=== PATIENT | female | born 1965 | race Caucasian/White ===

== ENCOUNTER → 2019-11-25 09:38 | Outpatient (BNVA) | payer SELFPAY | PROVIDERS: Family Provider Family Medicine; Visit Provider Obstetrics & Gynecology | DX: Z12.4 Encounter for screening for malignant neoplasm of cervix (principal); N81.10 Cystocele, unspecified; N81.6 Rectocele; R10.2 Pelvic and perineal pain | CPT/HCPCS: 88175 ==

== ENCOUNTER 2020-02-20 11:53 | Outpatient (CLI) | payer SELFPAY ==
--- NOTE | 2020-02-20 12:00 | MM_ITS ---
WS: [id number] BILATERAL DIGITAL SCREENING MAMMOGRAPHY WITH CAD CLINICAL INFORMATION: Breast cancer screening HISTORY: Screening mammogram. No current complaints. COMPARISON: January 30, 2018 TECHNIQUE: Bilateral CC and MLO views. FINDINGS: The breasts are composed of heterogeneous fibroglandular density tissue, which can limit the detectio n of small underlying mass lesions. No suspicious mass, asymmetry, calcifications, or architectural d istortion. No evidence of malignancy. MM/[place] [id number] IMPRESSION: BI-RADS: 1-Negative FOLLOW UP: 1 Year Follow-up Recommend return to annual screening mammography.
== END 2020-02-20 11:54 | disposition home or self-care (01) ==
PROVIDERS: PCP Family Medicine; Visit Provider Obstetrics & Gynecology
DX: Z12.31 Encounter for screening mammogram for malignant neoplasm of breast (principal)
CPT/HCPCS: 77067

== ENCOUNTER 2020-09-28 09:44 | Outpatient (CLI) | payer SELFPAY ==
[2020-09-28 10:25] VITALS: BMI 43.9
--- NOTE | 2020-09-28 10:28 | ECG_ITS ---
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 Interpretive Statements NAME OF STUDY: EXERCISE SESTAMIBI STRESS TEST INDICATION: Abnormal ekg, PROCEDURE: The baseline electrocardiogram showed normal sinus rhythm with a poor R wave progression. Diffuse nonspecific T wave changes. At the baseline, the patient's blood pressure was mm Hg with a heart rate of. The patient exercised for 5 minutes and 59 seconds on a standard Harish protocol. Patient attained a maximum heart rate of 159 beats per minute(97% of the maximum predicted heart rate) with a blood pressure at the peak exercise of 213/103 mm Hg. The EKG at the peak exercise revealed no significant changes. Patient did not have any chest pain or any significant arrhythmis with the exercise Sestamibi was injected 1 minute prior to the peak exercise During the recovery phase, there were no new changes. Blood pressure at the end of the recovery phase was 118/90 mm Hg with a heart rate of 96 per minute. CONCLUSION: 1. No significant EKG changes with the [treadmill exercise 2. No exercise-induced chest pain or cardiac arrhythmia 3. Slightly impaired impaired exercise tolerance, attained a maximum of 7.0 METs 4. Sestamibi/Sestamibi perfusion results pending; see separate report. Electronically Signed On 09-28-2020 15:43:40 SWIMMING POOL ATTENDANT by Kushal Gaines M.D. [id number]
--- NOTE | 2020-09-28 10:29 | NMCV_ITS ---
NM johnathan perf SPECT r/s* [id number] Lis Friedman Age: 55 Gender: F : 1965 Exam Date: 09/28/2020 11:39 Ordering Phys: Kushal Gaines MD ([email or web address]) Technologist: LILY Del Castillo Exam Location: [facility] Indications: OTHER CHEST PAIN STRESS TEST Please see separate stress test report in [facility] for full findings IMAGE PROTOCOL Rest/Stress 1 Exercise Day Radiopharmaceutical Dose (mCi) Administration Site Administered by Rest: Tc-99m 11.0 IV LILY Del Castillo Sestamibi Stress:Tc-99m 33.0 IV LILY Del Castillo Sestamibi Rest: 28-Sep-2020 60 Discovery 630 Stress: 28-Sep-2020 15 Discovery 630 Radiopharmaceutical was injected at 92 % maximum heart rate. Images obtained in supine and prone position. SPECT RESULTS Technical Quality: Good Raw Data Analysis: Breast attenuation Image Corrections: No attenuation or motion correction applied Summed Stress Score: 1 Summed Rest Score: 2 Summed Difference Score: 1 PERFUSION FINDINGS Slightly decreased tracer uptake was noted in the apical region with the supine imaging. Some reversibility was noted with the supine imaging. No significant reversibility with the prone imaging. FUNCTIONAL RESULTS (calculated via Gated SPECT) Stress Image LV EF (%): 86 Stress EDV (mL):56 TID: 0.75 Stress ESV (mL):8 FUNCTIONAL FINDINGS: Segmental wall motion analysis revealed no gross wall motion normalities. IMPRESSIONS 1. Myocardial perfusion imaging revealing a very small area of inconsistent reversible defect in the LV apex, most likely artifactual. 2. Normal LV ejection fraction of 86%. 3. LV wall motion analysis revealing no gross wall motion normalities. 4. Normal LV volume. No significant coronary ischemia, based on the above findings Dr Kushal Gaines MD [facility] (Electronically Signed) Final Date: 28 September 2020 17:09 S
[2020-09-28 12:59] VITALS: BP 118/90; PULSE 96
--- NOTE | 2020-09-28 14:15 | USCV_ITS ---
Lis Friedman Age: 55 Gender: F : 1965 Exam Date: 09/28/2020 10:51 Ordering Phys: Kushal Gaines MD ([email or web address]) Technologist: Laura Hager Exam Location: [facility] [place] Indication: CP BP: 138 / 79 HR: 70 Rhythm: Sinus Technical Quality: Adequate MEASUREMENTS (Male / Female) Normal Values 2D ECHO LV Diastolic Diameter PLAX 3.8 cm 4.2 - 5.9 / 3.9 - 5.3 cm LV Systolic Diameter PLAX 2.4 cm LV Chamber Size 4.3 cm IVS Diastolic Thickness 0.6 cm 0.6 - 1.0 / 0.6 - 0.9 cm IVS Systolic Thickness 2.0 cm LVPW Diastolic Thickness 0.6 cm 0.6 - 1.0 / 0.6 - 0.9 cm LVPW Systolic Thickness 1.7 cm RV Chamber Size 2.3 cm LVOT Diameter 2.0 cm LV Ejection Fraction 2D Teich 68.0 % LV Ejection Fraction MOD 2C 28.5 % LV Ejection Fraction 2C AL 28.0 % LA Diameter 3.4 cm LA Width 3.9 cm LA Height 5.3 cm RA Width 2.6 cm RA Height 3.9 cm Aorta at Sinotubular Diameter 2.7 cm M-MODE LV Diastolic Diameter MM 5.9 cm 4.2 - 5.9 / 3.9 - 5.3 cm LV Systolic Diameter MM 3.9 cm LV Ejection Fraction MM Teich 62.8 % IVS Diastolic Thickness MM 0.7 cm 0.6 - 1.0 / 0.6 - 0.9 cm IVS Systolic Thickness MM 1.3 cm LVPW Diastolic Thickness MM 0.7 cm 0.6 - 1.0 / 0.6 - 0.9 cm LVPW Systolic Thickness MM 1.3 cm RV Diastolic Diameter MM 0.8 cm Aortic Annulus Diameter 2.9 cm LA Ao Ratio MM 1.2 MV E Point Septal Separation 0.5 cm DOPPLER AV Peak Velocity 114.0 cm/s LVOT Peak Velocity 92.0 cm/s AV Area Cont Eq vti 2.1 cm squared AV Area Cont Eq pk 2.4 cm squared MV Area PHT 3.9 cm squared Mitral E to A Ratio 1.1 MV E' Velocity 54.0 cm/s Mitral E to MV E' Ratio 8.8 Mitral E to LV E' Lateral Ratio 8.6 Mitral E to LV E' Septal Ratio 9.1 TR Peak Velocity 207.9 cm/s TR Peak Gradient 17.3 mmHg TR Mean Velocity 126.1 cm/s TR Mean Gradient 7.6 mmHg TR Velocity Time Integral 34.1 cm TV Peak E Velocity 65.0 cm/s Right Atrial Pressure 3.0 mmHg Pulmonary Artery Systolic Pressu 20.3 mmHg FINDINGS Left Ventricle Normal left ventricular size and systolic function, EF 55 %. No gross wall motion abnormalities noted Right Ventricle Normal right ventricular size and systolic function. Right Atrium The right atrium is normal in size. Left Atrium Mildly increased left atrial size. Mitral Valve Grade 1 bileaflet mitral valve prolapse with trace of regurgitation Aortic Valve No gross abnormalities noted Tricuspid Valve Trace to mild tricuspid valve regurgitation. Pulmonic Valve Pulmonic valve not well visualized. Pericardium No pericardial effusion. Aorta Normal aortic annulus size. CONCLUSIONS Normal left ventricular size and systolic function, EF 55 %. No gross wall motion abnormalities noted. Mildly increased left atrial size. Grade 1 bileaflet mitral valve prolapse with trace of regurgitation. Trace to mild tricuspid valve regurgitation. There is no pericardial effusion. There are no intracardiac masses. There are no prior echocardiogram studies to compare. Dr Kushal Gaines MD FAC (Electronically Signed) Final Date: 29 September 2020 02:38 S
== END 2020-09-28 09:45 | disposition home or self-care (01) ==
LOC: CDL 09:50
PROVIDERS: PCP Family Medicine; Visit Provider Internal Medicine Cardiovascular Disease
DX: R06.02 Shortness of breath (principal); R94.31 Abnormal electrocardiogram [ECG] [EKG]; I34.1 Nonrheumatic mitral (valve) prolapse; I07.1 Rheumatic tricuspid insufficiency
CPT/HCPCS: 78452; 93017; 93306; A9500

== ENCOUNTER → 2021-04-09 08:11 | Outpatient (BNVA) | payer OTHER, SELFPAY | PROVIDERS: PCP Family Medicine; Visit Provider Surgery | DX: Z01.812 Encounter for preprocedural laboratory examination (principal); Z20.822 Contact with and (suspected) exposure to COVID-19 | CPT/HCPCS: 87635 ==

== ENCOUNTER 2021-04-15 05:57 | Day surgery (SDC) | payer SELFPAY ==
[2021-04-14 16:12] VITALS: BMI 43.9
[2021-04-15] VITALS (10 sets, daily range): BP systolic 98–136; BP diastolic 57–93; PULSE 74–88; RESP 16–20; TEMP 36.3–37; O2SAT 90–99
[2021-04-15] MEDS: sodium chloride 0.9% 1,000 ML 30 ML IV (06:23)
--- NOTE | 2021-04-15 06:27 | W.PM.OPSUD ---
Surgery/Procedure H&P Update DATE OF PROCEDURE: April 15, 2021 DATE H&P PERFORMED: 03/30/21 H&P UPDATE INFORMATION: No changes to prior documentation PLANNED PROCEDURE: Operation Date: 04/15/21 07:00 Proposed Procedures p Ventral Hernia Repair (Open) w/ [id number] [id number](Not Applicable) - Bharat Gottlieb MD
[2021-04-15] MEDS: ceFAZolin 3,000 MG in sodium chloride 0.9% (100 ml) 100 ML 200 MG IV (06:56)
--- NOTE | 2021-04-15 07:03 | ANES.PREANE2 ---
Pre-Anesthetic Assessment Pre-Anesthetic Assessment: Height/Weight: Height 1.57 m Weight 108.862 kg Temp Pulse Resp BP Pulse Ox 97.3 F L 79 16 109/86 99 04/15/21 06:06 04/15/21 06:06 04/15/21 06:06 04/15/21 06:06 04/15/21 06:06 Proposed Procedure: Operation Date: 04/15/21 07:00 Proposed Procedures p Ventral Hernia Repair (Open) w/ [id number] [id number](Not Applicable) - Bharat Gottlieb MD Was Beta Gutierrez taken within 24 hours: N/A Was Clonidine taken within 24 hours: N/A Last intake: Intake Last Liquid Date 04/14/21 Last Liquid Time 23:00 Last Solid Date 04/14/21 Last Solid Time 20:30 Social: Social History: No alcohol and No tobacco Exam: Pre-Anes Outpt Exam: alert, oriented x 3, clear to auscultation bilaterally and regular rate & rhythm Airway: Submandibular: WNL Cervical ROM: WNL MP: 2 Dentition: Partials Pulmonary: Pulmonary: Asthma CV/HEM: CV/HEM: HTN GI: GI: GERD Metabolic: Metabolic: Morbid obesity and Thyroid Anesthetic Plan: ASA status: 3 Anesthesia: General Risk of > 500 ml blood loss (7ml/kg in children): No Meds/Allergies Current Medications: Current Medications Generic Name Dose Route Start Last Admin Trade Name Freq PRN Reason Stop Dose Admin Sodium Chloride 1,000 mls @ 30 ml s/hr 04/15/21 06:00 04/15/21 06:23 Sodium Chloride 0.9% IV 04/16/21 05:59 30 mls/hr .Q24H NIYAH Administration PFSH Anesthesia PFSH: Medical History Abnormal EKG Asthma Atrial arrhythmia Benign essential HTN Dyslipidemia Hypertension Reactive airway disease SOB (shortness of breath) Surgical History S/P cataract extraction 2013- Performed in [place], [place] S/P endometrial ablation 2016 S/P eye surgery 1989- Performed in [place], [place], bilateral S/P knee replacement left knee 04/2018 right knee 07/2018 S/P sinus surgery 2012-Performed in [place], [place] 2015-Performed in [place] Family History Father CAD (coronary artery disease) CHF Mother CAD (coronary artery disease) CHF 78 Social History Smoking and tobacco status: never smoked Alcohol intake: never Data Anesthesia Cardiac Studies: Holter Monitor 08/24/20
--- NOTE | 2021-04-15 07:47 | PM.OP ---
Operative Report Date of procedure: April 15, 2021 Pre-op Diagnosis: Recurrent ventral hernia. Post-op diagnosis: same Procedure Done: Repair of recurrent ventral hernia with Ventrio mesh. Pathology: none sent Surgeon: Bharat Gottlieb Anesthesia: General Estimated blood loss (mL): 10 Complications: None. Condition: stable Disposition: PACU Procedure: The patient was brought to the operating room and was placed in a supine position on the operating room table. General endotracheal anesthesia was induced. The abdomen was prepped and draped in a sterile fashion. A combination of 1% lidocaine with 1 to 100,000 parts epinephrine and 0.5% bupivacaine was used for local anesthesia throughout the procedure. A vertical incision was carried out over the hernia in the low epigastrium. Cautery was used to divide the subcutaneous tissue and the hernia sac was identified. This is grasped with a hemostat and was cleared all the way down to the fascia where the sac was eventually opened and excised, revealing a hernia defect measuring perhaps 6 cm in greatest diameter. The fascia could be brought back together without much tension, however the wound was irrigated with saline.. A 4.5 inch round piece of Ventrio mesh was introduced into the abdominal cavity and was brought up against the abdominal wall using multiple through and through sutures of #1 Prolene. The fascial edges were then sewn to the mesh and to each other on top of the mesh using multiple interrupted sutures of 0 Prolene. This did a very good job of obliterating the defect with the mesh underneath the repair. The wound was extensively irrigated with saline. The dermis was brought together using multiple inverted interrupted sutures of 0 Vicryl. The skin was reapproximated using a running subcuticular suture of 3-0 Vicryl. Benzoin and Steri-Strips were placed over the incision and a sterile bandage followed. The patient was taken to the recovery area in stable condition postoperatively.
[2021-04-15] MEDS: ondansetron 2 mg/ML SDV 2 mL 4 MG IVP ×2 (07:58→08:12)
[2021-04-15] MEDS: fentaNYL 50 mcg/mL INJ 2mL IVP (08:05)
--- NOTE | 2021-04-15 08:15 | SUR.PHASEI ---
0753 PT TO PACU AWAKE ALERT GOOD RESP NOTED ABD SOFT MIDLINE DRESSING D/I 0758 PT C/O OF NAUSEA, SEE MED GIVEN 0805 PT GRIMICING C/O OF PAIN OF 10 AFTER COUGHING SEE MED GIVEN PT HOLDING ABD FOR SUPPORT WITH COUGHING 0815 PT STILL STATES NAUSEA IS UNCHANGED SEE MED REPEATED VSS.
--- NOTE | 2021-04-15 08:18 | SUR.PHASEI ---
PT CHANGED TO NC EARLIER PT CAN NOT TOLERATE THE MASK, PT SLEEPS OFF AND ON WITH ABOVE PAIN MEDS HAVING BEEN GIVEN SATS MAINTAINED AT 93-94% ON 3LNC .
[2021-04-15] MEDS: diphenhydrAMINE 50 mg/mL SDV 1mL 12.5 MG IVP (09:11)
[2021-04-15] MEDS: HYDROcodone-acetaminophen 5-325 mg Tablet 1 TAB PO (09:15)
--- NOTE | 2021-04-15 16:36 | ANE.PACU2 ---
Inpatient post-anesthesia follow up: Airway intact: Yes Vital signs: Temperature 98.6 F Pulse Rate 78 Respiratory Rate 16 Blood Pressure 122/82 Pulse Oximetry 94 Oxygen Delivery Me thod Room Air Oxygen Flow Rate 3 Fraction of Inspir ed Oxygen Hydration adequate: Yes Nausea and vomiting: No Pain level: 2 Mental status: Baseline
== END 2021-04-15 09:50 | disposition home or self-care (01) ==
PROVIDERS: PCP Family Medicine; Visit Provider Surgery
PROC: 0WQF0ZZ Repair Abdominal Wall, Open Approach (ICD-10-PCS; CPT 49565; principal; 2021-04-15 07:00)
DX: K43.2 Incisional hernia without obstruction or gangrene (principal); I10 Essential (primary) hypertension; K21.9 Gastro-esophageal reflux disease without esophagitis; E66.01 Morbid (severe) obesity due to excess calories; Z68.41 Body mass index [BMI] 40.0-44.9, adult; E78.5 Hyperlipidemia, unspecified; Z82.49 Family history of ischemic heart disease and other diseases of the circulatory system
CPT/HCPCS: 49565; 49568; 96365; J0690; J1200; J2405; J2704; J2710; J3010; J3490; J3535; J7030

== ENCOUNTER 2021-11-22 08:52 | Outpatient (CLI) | payer SELFPAY ==
--- NOTE | 2021-11-22 09:07 | MM_ITS ---
WS: [id number] BILATERAL SCREENING DIGITAL MAMMOGRAM WITH CAD HISTORY: SCREENING COMPARISON: 02/20/2020, 02/22/2018, 01/30/2018 and 04/07/2014 Bilateral CC and MLO views submitted. Computer aided detection analyzed. Breast composition: There are scattered areas of fibroglandular density. No suspicious masses, microc alcifications or architectural distortion. Asymmetries and calcifications are stable. MM/[place] [id number] IMPRESSION: BI-RADS: 2-Benign FOLLOW UP: 1 Year Follow-up
== END 2021-11-22 08:53 | disposition home or self-care (01) ==
LOC: RADSHAW 09:01
PROVIDERS: PCP Family Medicine; Visit Provider Pharmacist
DX: Z12.31 Encounter for screening mammogram for malignant neoplasm of breast (principal)
CPT/HCPCS: 77067

== ENCOUNTER 2023-01-27 07:33 | Outpatient (CLI) | payer SELFPAY ==
--- NOTE | 2023-01-27 08:09 | MM_ITS ---
WS: [id number] VIEWS: MLO and CC views both breasts. 3D digital tomosynthesis is also included in this exam. Comparison made with prior exam of 01/10/2008, 04/07/2014, 01/30/2018, 02/20/2020, 11/22/2021.. Findings: There was no sign of mass, architectural distortion or suspicious calcification in either breast. Sc attered fibroglandular densities MM/[place] [id number] Impression: BI-RADS: 2-Benign FOLLOW-UP: 1 Year Follow-up This mammogram was also analyzed by the Computer Aided Detection System R2 Imag e Architectural Practice Manager.
== END 2023-01-27 07:34 | disposition home or self-care (01) ==
LOC: RAD 07:38
PROVIDERS: PCP Electrodiagnostic Medicine; Visit Provider Electrodiagnostic Medicine
DX: Z12.31 Encounter for screening mammogram for malignant neoplasm of breast (principal)
CPT/HCPCS: 77063; 77067

== ENCOUNTER 2023-08-31 11:10 | Emergency (ER) | payer SELFPAY ==
[2023-08-31 11:31] VITALS: BP 135/94; PULSE 87; RESP 16; TEMP 36.6; O2SAT 99
[2023-08-31 11:52] VITALS: BP 136/94; PULSE 84; RESP 18; O2SAT 98
--- NOTE | 2023-08-31 11:58 | W.ED.DIZZY ---
HPI - Dizziness General: Chief Complaint: Dizziness Stated Complaint: high blood sugar Time Seen by Provider: 08/31/23 11:51 Source: patient Mode of arrival: ambulatory History of Present Illness: HPI Narrative: 58-year-old female reports to the emergency room complaining of dizziness lightheadedness generally not feeling well. She has been told before she has impaired glucose tolerance she is not on any medications. She ate a doughnut along with coffee with sugar and cream began not feeling well checked her blood sugar was over 500 she has noticed increased urination and blurred vision that she denies any chest pain. No history of coronary disease. Few weeks ago she had an episode of COVID and was briefly on a steroid burst and taper she has completed that now. MD elicited complaint: dizziness Exacerbating factors: nothing Relieving factors: nothing Associated symptoms: Denies abnormal vaginal bleeding, change in hearing, chest pain, chills, cough, diaphoresis, ear discharge, ear pressure, fevers/chills, headache(s), malaise, nausea, nasal congestion, palpitations, rash, short of breath, syncope, tinnitus, vomiting or weakness Associated neuro symptoms: Deny confusion, difficulty speaking, dysphagia, diplopia, extremity weakness, facial numbness, facial weakness, gait changes, numbness in extremities or visual changes Review of Systems Const: Denies: fever(s), chills, malaise or diaphoresis ENMT: Denies: ear discharge, change in hearing, tinnitus or nasal congestion Card: Denies: chest pain, palpitations or syncope Resp: Denies: dyspnea GI: Denies: abdominal pain, nausea, vomiting or dysphagia : Denies: dysuria, urinary frequency or urinary urgency Musc: Denies: neck pain or back pain Skin/Breast: Denies: rash Neuro: Denies: headache(s), numbness in extremities or confusion PFS ED PFSH: Medical History Abnormal EKG SOB (shortness of breath) Reactive airway disease Atrial arrhythmia Dyslipidemia Benign essential HTN Asthma Hypertension Surgical History S/P eye surgery 1989- Performed in [facility], [facility], bilateral S/P cataract extraction 2013- Performed in [place], [place] S/P sinus surgery 2012-Performed [place] 2015-Performed in [place] S/P knee replacement left knee 04/2018 right knee 07/2018 S/P endometrial ablation 2016 Family History Father CAD (coronary artery disease) CHF Mother CAD (coronary artery disease) CHF 78 Social History Smoking and tobacco/nicotine status: never used tobacco/nicotine Alcohol intake: never Substance/Drug Use: never Physical Exam Const: GENERAL APPEARANCE: cooperative and comfortable ORIENTATION/CONSCIOUSNESS: Yes awake, Yes oriented to person, Yes oriented to place and Yes oriented to time HENMT: COMMON NORMALS: normocephalic, atraumatic and hearing grossly normal bilaterally HEAD & SCALP: normocephalic and atraumatic Resp: COMMON NORMALS: normal respiratory effort, No retractions, No use of accessory muscles and clear to auscultation bilaterally AUSCULTATION: clear to auscultation bilaterally Cardio: COMMON NORMALS: regular rate, regular rhythm and No murmurs present (Cardio) RATE: regular rate RHYTHM: regular rhythm GI: COMMON NORMALS: Soft to palpation and No hepatosplenomegaly present AUSCULTATION: Yes normoactive bowel sounds PALPATION: Yes Soft to palpation, No Tenderness to palpation present (GI), No Guarding due to palpation present (GI) and Yes No hepatosplenomegaly present Extremity: COMMON NORMALS: normal to inspection, capillary refill normal, no clubbing, cyanosis or edema, no calf tenderness and no pedal edema Neuro: SENSORIUM/ORIENTATION: Yes oriented to person, Yes oriented to place and Yes oriented to time Skin: COMMON NORMALS: no rashes or lesions noted GENERAL SKIN EXAM: no rashes or lesions noted Course Vital Signs: Vital signs: Vital Signs Temperature 97.8 F 08/31/23 11:31 Pulse Rate 85 08/31/23 12:15 Respiratory Rate 18 08/31/23 12:15 Blood Pressure 119/84 08/31/23 12:15 Pulse Oximetry 95 08/31/23 12:15 Oxygen Delivery Me thod Room Air 08/31/23 12:15 MDM - Dizziness Medical Decision Making Patient's blood sugars improved Jumbo 300 this point think we could discharge her home we will start her on Janumet 50/501 p.o. twice daily. Encourage patient follow-up with her primary care doctor within the next week to reevaluate blood sugars. Likely will need further medication adjustments or additional medications. Medical Records I reviewed the patient's medical records. Lab Data I reviewed the patient's lab results. 08/31/23 12:00 08/31/23 12:00 Laboratory Results WBC 5.17 10^3/uL (3.29-11.43) 08/31/23 12:00 RBC 4.61 10^6/uL (3.85-5.65) 08/31/23 12:00 Hgb 15.10 g/dL (11.27-16.99) 08/31/23 12:00 Hct 42.6 % (36-47) 08/31/23 12:00 MCV 92.4 fl (85-98) 08/31/23 12:00 MCH 32.8 pg (27-33) 08/31/23 12:00 MCHC 35.4 g/dL (30-55) 08/31/23 12:00 RDW 11.2 % (12.1-15.1) L 08/31/23 12:00 Plt Count 208 10^3/cmm (157-399) 08/31/23 12:00 MPV 10.8 fL (7.4-10.4) H 08/31/23 12:00 Neut % (Auto) 48.7 % 08/31/23 12:00 Lymph % (Auto) 41.2 % 08/31/23 12:00 Osborne % (Auto) 8.1 % 08/31/23 12:00 Eos % (Auto) 1.2 % 08/31/23 12:00 Baso % (Auto) 0.6 % 08/31/23 12:00 Neut # (Auto) 2.52 10^3/uL (1.8-7.7) 08/31/23 12:00 Lymph # (Auto) 2.1 10^3/uL (0.8-4.8) 08/31/23 12:00 Osborne # (Auto) 0.4 10^3/uL (0.2-0.9) 08/31/23 12:00 Eos # (Auto) 0.1 10^3/uL (0.0-0.8) 08/31/23 12:00 Baso # (Auto) 0.0 10^3/uL (0.0-0.1) 08/31/23 12:00 Nucleated RBC % (auto) 0 % 08/31/23 12:00 Nucleated RBCs # 0.0 /100WBC 08/31/23 12:00 Sodium 130 mmol/L (136-145) L 08/31/23 12:00 Potassium 4.1 mmol/L (3.5-5.1) 08/31/23 12:00 Chloride 93 mmol/L (98-107) L 08/31/23 12:00 Carbon Dioxide 23 mmol/L (22-29) 08/31/23 12:00 Anion Gap 18.1 (5-19) 08/31/23 12:00 BUN 15 mg/dL (8-23) 08/31/23 12:00 Creatinine 0.7 mg/dL (0.5-0.9) 08/31/23 12:00 GFR Calculation 85.4 mL/min (90-130) L 08/31/23 12:00 Glucose 507 mg/dL (65-115) H* 08/31/23 12:00 POC Glucose 421 mg/dL (70-110) H 08/31/23 12:43 Calculated Osmolality 294 mOsm/kg (285-295) 08/31/23 12:00 Calcium 9.3 mg/dL (8.5-10.5) 08/31/23 12:00 Total Bilirubin 0.7 mg/dL (0.15-1.2) 08/31/23 12:00 AST 41 U/L (0-32) H 08/31/23 12:00 ALT 42 U/L (0-33) H 08/31/23 12:00 Alkaline Phosphatase 101 U/L (35-105) 08/31/23 12:00 Total Protein 7.7 g/dL (6.6-8.7) 08/31/23 12:00 Albumin 4.3 g/dL (3.5-5.2) 08/31/23 12:00 Globulin 3.4 g/dL (1.3-4.6) 08/31/23 12:00 Urine Color Yellow (Yellow) 08/31/23 12:00 Urine Appearance Clear (CLEAR) 08/31/23 12:00 Urine pH 6 (5-7) 08/31/23 12:00 Ur Specific [place] 1.010 (1.005-1.030) 08/31/23 12:00 Urine Protein Neg (Negative) 08/31/23 12:00 Urine Glucose (UA) 4+ (Normal) H 08/31/23 12:00 Urine Ketones 1+ (Negative) H 08/31/23 12:00 Urine Blood Neg (Negative) 08/31/23 12:00 Urine Nitrate Negative (Negative) 08/31/23 12:00 Urine Bilirubin Neg (Negative) 08/31/23 12:00 Urine Urobilinogen Norm mg/dL (Negative) 08/31/23 12:00 Ur Leukocyte Esterase Negative (Negative) 08/31/23 12:00 No radiology studies performed this visit Discharge Plan Discharge Patient Disposition: Home Clinical Impression: Diabetes mellitus, Hyperglycemia Condition: Stable Prescriptions: New Janumet 50-500 mg tablet 1 tab PO BID Qty: 60 0RF No Action albuterol sulfate 2.5 mg /3 mL (0.083 %) solution for nebulization 2.5 mg INHALATION Q6H PRN (Reason: Shortness Of Breath Or Wheezing) albuterol sulfate [Ventolin HFA] 90 mcg/actuation HFA aerosol inhaler 2 puff INHALATION QID PRN (Reason: Shortness Of Breath) Zyrtec 10 mg capsule 10 mg PO DAILY montelukast [Singulair] 10 mg tablet 10 mg PO DAILY ferrous sulfate 325 mg (65 mg iron) tablet,delayed release (DR/EC) 325 mg PO DAILY omeprazole 20 mg tablet,delayed release (DR/EC) 20 mg PO DAILY magnesium See Rx Instructions .ROUTE .COMPLEX Rx Instructions: . levothyroxine 100 mcg capsule 100 mcg PO DAILY lisinopril-hydrochlorothiazide 10-12.5 mg tablet 1 tab PO DAILY Lactobacillus acidophilus See Rx Instructions .ROUTE .COMPLEX Rx Instructions: . potassium 275 mg capsule See Rx Instructions .ROUTE .COMPLEX Rx Instructions: takes 2 daily biotin 10,000 mcg tablet,disintegrating 10,000 mcg PO DAILY calcium polycarbophil [Fiber Therapy (ca polycarboph)] 625 mg tablet 1,250 mg PO DAILY hydrocodone-acetaminophen 5-325 mg tablet 1 - 2 tab PO Q5H PRN (Reason: pain) Qty: 30 0RF Discharge Orders: Discharge ED (Routine); Ordered 08/31/23 Ordered By: Nir Cadena Referrals: Dave Rodriguez, [Primary Care Provider] - Discharge Diet: Diabetic Discharge Activity: Increase activity as tolerated Patient Instructions: Meal Planning with Diabetes Exchanges (DC), Opioid Safety, Pain Management Activity Restrictions/Additional Instructions: Thank you for choosing [facility] for your healthcare needs today. Please realize this is an emergency room and that we are providing you with a medical screening exam and this may not be complete and all inclusive of all the testing and or work up that you may need to determine your ailment or severity of your illness. It is very important that you follow up as instructed or that you return to the Emergency Department should you have concerns or if your condition changes or worsens in any way. You are seen today for elevated blood sugars it did improve with administration of fluids and insulin. Recommend that you start Janumet 1 tablet twice daily. This will likely not be enough to fully control your blood sugars but will get you started. You should follow-up with your doctor within the next 1 to 2 weeks to reevaluate and adjust medicines as deemed necessary. Coding Level of Care Code ED Bakery Supervisor for Hollis Gunderson
[2023-08-31] MEDS: insulin regular-human 100 units/1 mL 5 UNIT IVP (12:13)
[2023-08-31] MEDS: sodium chloride 0.9% 1,000 ML 999 ML IV (12:14)
[2023-08-31 12:15] VITALS: BP 119/84; PULSE 85; RESP 18; O2SAT 95
[2023-08-31 12:19] LABS: Add Urine Microscopic? NO; Charge for UA Resulting for Rev
[2023-08-31 12:23] LABS: Basophils % 0.6 %; Eosinophils # 0.1 10^3/uL (0.0-0.8); Eosinophils % 1.2 %; Hematocrit 42.6 % (36-47); Lymphocytes # 2.1 10^3/uL (0.8-4.8); Lymphocytes % 41.2 %; Mean Corpuscular HGB Conc 35.4 g/dL (30-55); Mean Corpuscular Hemoglobin 32.8 pg (27-33); Mean Corpuscular Volume 92.4 fl (85-98); Mean Platelet Volume 10.8 fL (7.4-10.4); Monocytes # 0.4 10^3/uL (0.2-0.9); Monocytes % 8.1 %; Neutrophils # 2.52 10^3/uL (1.8-7.7); Neutrophils % 48.7 %; Nucleated Red Blood Cells % 0 %; Platelet Count 208 10^3/cmm (157-399); Red Blood Count 4.61 10^6/uL (3.85-5.65); Red Cell Distribution Width 11.2 % (12.1-15.1); White Blood Count 5.17 10^3/uL (3.29-11.43)
[2023-08-31 12:39] LABS: Urine Appearance Clear (CLEAR); Urine Color Yellow (Yellow)
[2023-08-31 12:40] LABS: Bilirubin Urine Neg (Negative); Blood Urine Neg (Negative); Glucose Urine UA 4+ (Normal); Ketones Urine 1+ (Negative); Leukocyte Esterase Urine Negative (Negative); Nitrate Urine Negative (Negative); Protein Urine Neg (Negative); Urobilinogen Urine Norm (Negative); pH Urine 6 (5-7)
[2023-08-31 12:46] LABS: Glucose Point of Care 421 mg/dL (70-110)
[2023-08-31 12:48] LABS: Alanine Aminotransferase 42 U/L (0-33); Albumin Level 4.3 g/dL (3.5-5.2); Alkaline Phosphatase 101 U/L (35-105); Aspartate Amino Transferase 41 U/L (0-32); Blood Urea Nitrogen 15 mg/dL (8-23); Calcium 9.3 mg/dL (8.5-10.5); Carbon Dioxide 23 mmol/L (22-29); Chloride 93 mmol/L (98-107); Globulin 3.4 g/dL (1.3-4.6); Glomerular Filtration Rate 85.4 mL/min (90-130); Osmolality Calculated 294 mOsm/kg (285-295); Sodium 130 mmol/L (136-145); Total Bilirubin 0.7 mg/dL (0.15-1.2); Total Protein 7.7 g/dL (6.6-8.7)
[2023-08-31 12:59] LABS: Anion Gap 18.1 (5-19); Potassium 4.1 mmol/L (3.5-5.1)
[2023-08-31 13:00] LABS: Glucose 507 mg/dL (65-115)
[2023-09-01 22:46] LABS: Glucose Point of Care 491 mg/dL (70-110)
== END 2023-08-31 13:27 | disposition home or self-care (01) ==
PROVIDERS: Emergency Provider Family Medicine; PCP Electrodiagnostic Medicine
DX: E11.65 Type 2 diabetes mellitus with hyperglycemia (principal); E78.5 Hyperlipidemia, unspecified; I10 Essential (primary) hypertension
CPT/HCPCS: 36416; 80053; 81003; 82962; 85025; 96374; 99284; J1815; J7030

== ENCOUNTER 2023-09-01 22:29 | Emergency (ER) | payer SELFPAY ==
[2023-09-01 22:41] VITALS: BP 138/93; PULSE 90; RESP 17; TEMP 36.6; O2SAT 98; BMI 43.5
[2023-09-02 00:50] LABS: Basophils % 0.7 %; Eosinophils # 0.1 10^3/uL (0.0-0.8); Eosinophils % 1.4 %; Hematocrit 40.1 % (36-47); Lymphocytes # 2.7 10^3/uL (0.8-4.8); Lymphocytes % 47.6 %; Mean Corpuscular HGB Conc 35.2 g/dL (30-55); Mean Corpuscular Hemoglobin 33.2 pg (27-33); Mean Corpuscular Volume 94.4 fl (85-98); Mean Platelet Volume 10.3 fL (7.4-10.4); Monocytes # 0.6 10^3/uL (0.2-0.9); Monocytes % 9.9 %; Neutrophils % 40.1 %; Nucleated Red Blood Cells % 0 %; Platelet Count 198 10^3/cmm (157-399); Red Blood Count 4.25 10^6/uL (3.85-5.65); Red Cell Distribution Width 11.7 % (12.1-15.1); White Blood Count 5.74 10^3/uL (3.29-11.43)
[2023-09-02 01:12] LABS: Alanine Aminotransferase 46 U/L (0-33); Alkaline Phosphatase 89 U/L (35-105); Anion Gap 13.4 (5-19); Aspartate Amino Transferase 45 U/L (0-32); Blood Urea Nitrogen 20 mg/dL (8-23); Calcium 9.5 mg/dL (8.5-10.5); Carbon Dioxide 25 mmol/L (22-29); Chloride 97 mmol/L (98-107); Globulin 3.1 g/dL (1.3-4.6); Glomerular Filtration Rate 85.4 mL/min (90-130); Glucose 410 mg/dL (65-115); Osmolality Calculated 292 mOsm/kg (285-295); Potassium 4.4 mmol/L (3.5-5.1); Sodium 131 mmol/L (136-145); Total Bilirubin 0.4 mg/dL (0.15-1.2); Total Protein 7.1 g/dL (6.6-8.7)
[2023-09-02 02:20] LABS: Glucose Point of Care 341 mg/dL (70-110)
[2023-09-02] MEDS: insulin regular-human 100 units/1 mL 10 UNIT IVP (02:45)
[2023-09-02] MEDS: sodium chloride 0.9% 500 ML 999 ML IV (02:49)
[2023-09-02 03:31] VITALS: BP 140/93; PULSE 90; RESP 16; O2SAT 98
[2023-09-02 03:34] LABS: Glucose Point of Care 230 mg/dL (70-110)
[2023-09-02 04:28] VITALS: PULSE 96; RESP 16; O2SAT 97
[2023-09-02 09:46] LABS: Glucose Point of Care 440 mg/dL (70-110)
--- NOTE | 2023-09-02 16:49 | ED_ITS ---
HPI - Dizziness 2 General: Chief Complaint: Dizziness Stated Complaint: High Blood sugar Time Seen by Provider: 09/02/23 02:16 History of Present Illness: HPI Narrative: 58 year old female with newly diagnosed diabetes. She was placed on janumet for this. She has had three doses. Her blood sugar was still 500 this evening. She is complaining of dizziness. She has frequent urination. Some nausea. No vomiting. Dizziness has somewhat improved on its own. Her blood sugar has decreased while she has been waiting to be seen. Associated symptoms: Denies chest pain, chills, headache(s), nausea, palpitations or vomiting Associated neuro symptoms: Deny confusion Review of Systems 2 Const: Denies: fever(s), chills or body aches Eyes: Denies: change in vision Card: Denies: chest pain or palpitations Resp: Denies: dyspnea, productive cough, non-productive cough or wheezing GI: Denies: abdominal pain, nausea, vomiting, diarrhea or hematochezia : Denies: difficulty voiding Skin/Breast: Denies: rash Neuro: Denies: headache(s), weakness in extremities or confusion PFSH ED 2 PFSH: Medical History Abnormal EKG SOB (shortness of breath) Reactive airway disease Atrial arrhythmia Dyslipidemia Benign essential HTN Asthma Hypertension Surgical History S/P eye surgery 1989- Performed in [facility], bilateral S/P cataract extraction 2013- Performed in [place] S/P sinus surgery 2011-Performed in [facility] 2014-Performed in [facility] S/P knee replacement left knee 04/2018 right knee 07/2018 S/P endometrial ablation 2016 Family History Father CAD (coronary artery disease) CHF Mother CAD (coronary artery disease) CHF 78 Social History Smoking and tobacco/nicotine status: never used tobacco/nicotine Alcohol intake: never Substance/Drug Use: never Physical Exam 2 Const: COMMON NORMALS: no acute distress GENERAL APPEARANCE: cooperative; not ill appearing and not frail appearing HENMT: COMMON NORMALS: normocephalic, atraumatic and Normal external nose present HEAD & SCALP: normocephalic and atraumatic FACE & SINUS: normal facial exam and face symmetric NOSE: Normal external nose present Eye: COMMON NORMALS: Equal, round and reactive pupils present and EOMs intact bilaterally PUPIL: Yes Equal, round and reactive pupils present Neck/C-Spine: GENERAL: Yes trachea midline Chest: CHEST: Yes Symmetrical chest wall rise Resp: COMMON NORMALS: normal respiratory effort, No retractions, No use of accessory muscles and clear to auscultation bilaterally AUSCULTATION: clear to auscultation bilaterally Cardio: COMMON NORMALS: regular rate and regular rhythm RATE: regular rate RHYTHM: regular rhythm GI: COMMON NORMALS: Normal to inspection, nondistended, normoactive bowel sounds present Extremity: COMMON NORMALS: no pedal edema Neuro: [place] COMA SCALE: document GCS findings [place] coma scale eye opening: Spontaneous [place] coma scale verbal response: Orientated [place] coma scale motor response: [place]bey commands [place] coma scale total score: 15 S ENSORY EXAM: Yes extremities (intact) Psych: COMMON NORMALS: speech normal SPEECH: Yes normal speech Skin: COMMON NORMALS: no rashes or lesions noted GENERAL SKIN EXAM: no rashes or lesions noted Course 2 Vital Signs: Vital signs: Vital Signs Temperature 97.9 F 09/01/23 22:41 Pulse Rate 96 09/02/23 04:28 Respiratory Rate 16 09/02/23 04:28 Blood Pressure 140/93 09/02/23 03:31 Pulse Oximetry 97 09/02/23 04:28 Oxygen Delivery Me thod Room Air 09/02/23 03:31 MDM - Dizziness Medical Decision Making Patient was given intravenous insulin, and fluids. She feels improved. Blood sugar is down in the two hundreds. She is non acidotic. Laboratory is otherwise not remarkable. He was explained to her that it may take a few more doses of janumet to begin to bring her sugar down. In the meantime, we will prescribe her short acting insulin with the sliding scale to go home with period sliding scale use of insulin administration was explained to the patient. She'll follow up next week with their doctor as scheduled and return if she has worsening symptoms. Lab Data 09/02/23 00:44 09/02/23 00:44 Laboratory Results WBC 5.74 10^3/uL (3.29-11.43) 09/02/23 00:44 RBC 4.25 10^6/uL (3.85-5.65) 09/02/23 00:44 Hgb 14.10 g/dL (11.27-16.99) 09/02/23 00:44 Hct 40.1 % (36-47) 09/02/23 00:44 MCV 94.4 fl (85-98) 09/02/23 00:44 MCH 33.2 pg (27-33) H 09/02/23 00:44 MCHC 35.2 g/dL (30-55) 09/02/23 00:44 RDW 11.7 % (12.1-15.1) L 09/02/23 00:44 Plt Count 198 10^3/cmm (157-399) 09/02/23 00:44 MPV 10.3 fL (7.4-10.4) 09/02/23 00:44 Neut % (Auto) 40.1 % 09/02/23 00:44 Lymph % (Auto) 47.6 % 09/02/23 00:44 [place] % (Auto) 9.9 % 09/02/23 00:44 Eos % (Auto) 1.4 % 09/02/23 00:44 Baso % (Auto) 0.7 % 09/02/23 00:44 Neut # (Auto) 2.30 10^3/uL (1.8-7.7) 09/02/23 00:44 Lymph # (Auto) 2.7 10^3/uL (0.8-4.8) 09/02/23 00:44 [place] # (Auto) 0.6 10^3/uL (0.2-0.9) 09/02/23 00:44 Eos # (Auto) 0.1 10^3/uL (0.0-0.8) 09/02/23 00:44 Baso # (Auto) 0.0 10^3/uL (0.0-0.1) 09/02/23 00:44 Nucleated RBC % (auto) 0 % 09/02/23 00:44 Nucleated RBCs # 0.0 /100WBC 09/02/23 00:44 Sodium 131 mmol/L (136-145) L 09/02/23 00:44 Potassium 4.4 mmol/L (3.5-5.1) 09/02/23 00:44 Chloride 97 mmol/L (98-107) L 09/02/23 00:44 Carbon Dioxide 25 mmol/L (22-29) 09/02/23 00:44 Anion Gap 13.4 (5-19) 09/02/23 00:44 BUN 20 mg/dL (8-23) 09/02/23 00:44 Creatinine 0.7 mg/dL (0.5-0.9) 09/02/23 00:44 GFR Calculation 85.4 mL/min (90-130) L 09/02/23 00:44 Glucose 410 mg/dL (65-115) H 09/02/23 00:44 POC Glucose 230 mg/dL (70-110) H 09/02/23 03:31 Calculated Osmolality 292 mOsm/kg (285-295) 09/02/23 00:44 Calcium 9.5 mg/dL (8.5-10.5) 09/02/23 00:44 Total Bilirubin 0.4 mg/dL (0.15-1.2) 09/02/23 00:44 AST 45 U/L (0-32) H 09/02/23 00:44 ALT 46 U/L (0-33) H 09/02/23 00:44 Alkaline Phosphatase 89 U/L (35-105) 09/02/23 00:44 Total Protein 7.1 g/dL (6.6-8.7) 09/02/23 00:44 Albumin 4.0 g/dL (3.5-5.2) 09/02/23 00:44 Globulin 3.1 g/dL (1.3-4.6) 09/02/23 00:44 No radiology studies performed this visit Discharge Plan Discharge Patient Disposition: Home Clinical Impression: Diabetes mellitus Condition: Stable Prescriptions: New insulin lispro 100 unit/mL insulin pen See Rx Instructions .ROUTE .COMPLEX Qty: 15 0RF Rx Instructions: Use dosage according to your sliding scale No Action albuterol sulfate 2.5 mg /3 mL (0.083 %) solution for nebulization 2.5 mg INHALATION Q6H PRN (Reason: Shortness Of Breath Or Wheezing) albuterol sulfate [Ventolin HFA] 90 mcg/actuation HFA aerosol inhaler 2 puff INHALATION QID PRN (Reason: Shortness Of Breath) Zyrtec 10 mg capsule 10 mg PO DAILY montelukast [Singulair] 10 mg tablet 10 mg PO DAILY ferrous sulfate 325 mg (65 mg iron) tablet,delayed release (DR/EC) 325 mg PO DAILY omeprazole 20 mg tablet,delayed release (DR/EC) 20 mg PO DAILY magnesium See Rx Instructions .ROUTE .COMPLEX Rx Instructions: . levothyroxine 100 mcg capsule 100 mcg PO DAILY lisinopril-hydrochlorothiazide 10-12.5 mg tablet 1 tab PO DAILY Lactobacillus acidophilus See Rx Instructions .ROUTE .COMPLEX Rx Instructions: . potassium 275 mg capsule See Rx Instructions .ROUTE .COMPLEX Rx Instructions: takes 2 daily biotin 10,000 mcg tablet,disintegrating 10,000 mcg PO DAILY calcium polycarbophil [Fiber Therapy (ca polycarboph)] 625 mg tablet 1,250 mg PO DAILY hydrocodone-acetaminophen 5-325 mg tablet 1 - 2 tab PO Q5H PRN (Reason: pain) Qty: 30 0RF Janumet 50-500 mg tablet 1 tab PO BID Qty: 60 0RF Discharge Orders: Discharge ED (Routine); Ordered 09/02/23 Ordered By: Felipe Goodman Referrals: Dave Rodriguez, [Primary Care Provider] - 1-3 days Patient Instructions: How to Give an Insulin Injection (ED), Diabetic Hyperglycemia (ED), Opioid Safety, Pain Management Activity Restrictions/Additional Instructions: Fill your insulin prescription in the morning, and take according to the sliding scale you were given in the emergency department. Continue your Janumet. Follow-up with your doctor as scheduled. Record how many units of insulin you are having to give yourself, as this may be useful information to your doctor. Return for vomiting, fever, mental status changes, other concerning symptoms. Coding Level of Care Code ED [employer] for Hollis Gunderson
== END 2023-09-02 04:21 | disposition home or self-care (01) ==
PROVIDERS: Emergency Medicine; Emergency Provider Emergency Medicine; PCP Electrodiagnostic Medicine
DX: E11.9 Type 2 diabetes mellitus without complications (principal); E78.5 Hyperlipidemia, unspecified; I10 Essential (primary) hypertension
CPT/HCPCS: 36415; 36416; 80053; 82962; 85025; 96361; 96374; 99284; J1815; J7040

== ENCOUNTER 2023-12-27 10:15 | Outpatient (CLI) | payer SELFPAY ==
--- NOTE | 2023-12-27 10:39 | MM_ITS ---
WS: [id number] BILATERAL SCREENING DIGITAL TOMOSYNTHESIS MAMMOGRAM WITH CAD HISTORY: SCREEN COMPARISON: 02/20/2020, 11/22/2021, 01/27/2023 Bilateral CC and MLO views with tomosynthesis and synthetic mammography submitted. Computer aided det ection analyzed. Breast composition: There are scattered areas of fibroglandular density. No suspicious masses, microc alcifications or architectural distortion. Lobulated mass measuring 1.4 cm in the posterior RIGHT zhen ast has been present on prior studies but better visualized today. Similar to the prior study from . Asymmetries in the LEFT breast are stable. IMPRESSION: MM/[place] [id number] BI-RADS: 2-Benign FOLLOW UP: 1 Year Follow-up
== END 2023-12-27 10:16 | disposition home or self-care (01) ==
LOC: RAD 10:16
PROVIDERS: PCP Electrodiagnostic Medicine; Visit Provider Electrodiagnostic Medicine
DX: Z12.31 Encounter for screening mammogram for malignant neoplasm of breast (principal)
CPT/HCPCS: 77063; 77067

== ENCOUNTER 2024-01-25 13:37 | Emergency (ER) | payer OTHER, SELFPAY ==
[2024-01-25 14:18] VITALS: BP 156/96; PULSE 80; RESP 17; TEMP 36.5; O2SAT 97; BMI 40.8
--- NOTE | 2024-01-25 14:24 | CT_ITS ---
WS: [id number] CT FACIAL BONES HISTORY: fall injury TECHNIQUE: Images obtained from the supraorbital location through the mandible. Soft tissue and bone windows are reviewed. Coronal and sagittal reformats have also been submitted. DLP: 1430.[address] scans at [facility] use at least one of these dose optimization techniques: automated e xposure control; mA and/or kV adjustment per patient size (includes targeted exams where dose is matc hed to clinical indication); or iterative reconstruction. COMPARISON: None available. No skull fracture over the RIGHT frontal bone. Nasal bones and zygomatic arches are intact. No orbita l floor fracture. Mandibular condyles are intact. There is a very large acute hyperdense soft tissue hematoma centered over the RIGHT orbit and globe. No postseptal extension of the hematoma. No additional abnormalities. Upper cervical spine is negative for acute fracture. IMPRESSION: 1. No facial bone fractures. 2. Large acute soft tissue hematoma centered over the RIGHT orbit and globe.
--- NOTE | 2024-01-25 14:24 | CT_ITS ---
WS: [id number] CT HEAD NONCONTRAST HISTORY: fall injury TECHNIQUE: Contiguous axial imaging performed through the brain in 2.5 mm imaging. Bone and soft tiss ue windows. Sagittal and coronal reformats reviewed. All CT scans at [facility] use at least one of these dose optimization techniques: automated exposure control; mA and/or kV adjustment per pa tient size (includes targeted exams where dose is matched to clinical indication); or iterative recon struction. DLP: 1430.94 mGy.cm COMPARISON: None available. No acute intracranial hemorrhage, midline shift or mass effect. No atrophy or prior infarcts or herniation. Ventricles: Normal size with no hydrocephalus. No inferior displacement of the cerebellar tonsils. Paranasal sinuses: Mild mucoperiosteal thickening in the sphenoid sinuses. Mastoid air cells: Well pneumatized. Calvarium and scalp: No skull fracture. There is a large acute hematoma centered over the RIGHT orbit and globe. IMPRESSION: 1. No acute intracranial hemorrhage or edema. 2. No skull fracture. 3. Large acute soft tissue hematoma centered over the RIGHT orbit and globe.
--- NOTE | 2024-01-25 14:24 | XRR_ITS ---
PROCEDURE INFORMATION: Exam: XR Right Knee Exam date and time: 01/25/2024 3:11 PM Age: 58 years old Clinical indication: Injury or trauma; Fall; Blunt trauma; Knee; Right; Additional info: Fall injury TECHNIQUE: Imaging protocol: Radiologic exam of the right knee. Views: 3 views. COMPARISON: No relevant prior studies available. FINDINGS: Bones/joints: Right total knee arthroplasty noted in expected alignment. Negative for fracture. Soft tissues: Normal. XR/XR knee RT 3V* [id number] IMPRESSION: No acute findings.
--- NOTE | 2024-01-25 15:52 | W.ED.FALL ---
HPI - Fall General: Chief Complaint: Fall Stated Complaint: fell at work Time Seen by Provider: 01/25/24 15:48 History of Present Illness: 58-year-old female comes in today with injury to the right side of the head. Patient had tripped over a door stop while working at [employer] [facility] [employer]. Patient has a visible hematoma to the right lateral forehead around the brow. Swelling does extend to the eyelids. Patient also reports some tenderness to the anterior right knee. Patient is ambulatory without difficulty. Patient does have a history of knee replacement. Patient also has a history of asthma and diabetes mellitus. Review of Systems General: Reports: 10 or more systems reviewed and unremarkable except in HPI and below PFSH ED PFSH: Medical History Abnormal EKG SOB (shortness of breath) Reactive airway disease Atrial arrhythmia Dyslipidemia Benign essential HTN Asthma Hypertension Surgical History S/P eye surgery 1989- Performed in [facility], [facility], bilateral S/P cataract extraction 2013- Performed in [place], [place] S/P sinus surgery 2011-Performed in [facility] [place] 2014-Performed in [facility], [facility] S/P knee replacement left knee 04/2018 right knee 07/2018 S/P endometrial ablation 2016 Family History Father CAD (coronary artery disease) CHF Mother CAD (coronary artery disease) CHF 78 Social History Smoking and tobacco/nicotine status: never used tobacco/nicotine Alcohol intake: never Substance/Drug Use: never Physical Exam Const: COMMON NORMALS: alert HENMT: FACE & SINUS: other (Hematoma right forehead) Eye: OTHER: Upper eyelid swelling and bruising with large hematoma to the right eyebrow Neck/C-Spine: COMMON NORMALS: full ROM CERVICAL SPINE: Yes cervical ROM normal and No Cervical spine tenderness Chest: COMMONS NORMALS: normal palpation of entire chest wall Resp: COMMON NORMALS: normal respiratory effort and clear to auscultation bilaterally AUSCULTATION: clear to auscultation bilaterally Cardio: COMMON NORMALS: regular rate and regular rhythm RATE: regular rate RHYTHM: regular rhythm GI: COMMON NORMALS: non-tender Back/Pelvis: COMMON NORMALS: thoracic and lumbar spine normal to inspection Extremity: COMMON NORMALS: full ROM Neuro: SENSORIUM/ORIENTATION: Yes alert Skin: COMMON NORMALS: turgor normal GENERAL SKIN EXAM: turgor normal Course Vital Signs: Vital signs: Vital Signs Temperature 97.7 F 01/25/24 14:18 Pulse Rate 84 01/25/24 15:55 Respiratory Rate 16 01/25/24 15:55 Blood Pressure 128/84 01/25/24 15:55 Pulse Oximetry 96 01/25/24 15:55 Oxygen Delivery Me thod Room Air 01/25/24 15:55 MDM - Fall Medical Decision Making 58-year-old female comes in today for injury to the right eyebrow. On exam patient moves extremities well. Patient does have some tenderness to the right anterior knee. Patient has a large hematoma to the right lateral eyebrow. Differential diagnosis includes fracture, intracranial bleeding, hematoma, contusion. CT of the head and facial bones noted no fractures or intracranial bleeding. X-ray of the knee was unremarkable. Reviewed exam with patient with recommendations for treatment and follow-up. Patient reported understanding. Lab Data Radiology Impressions Knee X-Ray 01/25/24 14:24 IMPRESSION: No acute findings. All radiology interpretation(s) finalized by discharge Discharge Plan Discharge Patient Disposition: Home Clinical Impression: Fall on same level from tripping Traumatic hematoma of forehead Qualifiers: Encounter type: initial encounter Qualified Code(s): S00.83XA - Contusion of other part of head, initial encounter Head injury Qualifiers: Encounter type: initial encounter Qualified Code(s): S09.90XA - Unspecified injury of head, initial encounter Condition: Stable Prescriptions: No Action albuterol sulfate 2.5 mg /3 mL (0.083 %) solution for nebulization 2.5 mg INHALATION Q6H PRN (Reason: Shortness Of Breath Or Wheezing) albuterol sulfate [Ventolin HFA] 90 mcg/actuation HFA aerosol inhaler 2 puff INHALATION QID PRN (Reason: Shortness Of Breath) Zyrtec 10 mg capsule 10 mg PO DAILY montelukast [Singulair] 10 mg tablet 10 mg PO DAILY ferrous sulfate 325 mg (65 mg iron) tablet,delayed release (DR/EC) 325 mg PO DAILY omeprazole 20 mg tablet,delayed release (DR/EC) 20 mg PO DAILY magnesium See Rx Instructions .ROUTE .COMPLEX Rx Instructions: . levothyroxine 100 mcg capsule 100 mcg PO DAILY lisinopril-hydrochlorothiazide 10-12.5 mg tablet 1 tab PO DAILY Lactobacillus acidophilus See Rx Instructions .ROUTE .COMPLEX Rx Instructions: . potassium 275 mg capsule See Rx Instructions .ROUTE .COMPLEX Rx Instructions: takes 2 daily biotin 10,000 mcg tablet,disintegrating 10,000 mcg PO DAILY calcium polycarbophil [Fiber Therapy (ca polycarboph)] 625 mg tablet 1,250 mg PO DAILY hydrocodone-acetaminophen 5-325 mg tablet 1 - 2 tab PO Q5H PRN (Reason: pain) Qty: 30 0RF Janumet 50-500 mg tablet 1 tab PO BID Qty: 60 0RF insulin lispro 100 unit/mL insulin pen See Rx Instructions .ROUTE .COMPLEX Qty: 15 0RF Rx Instructions: Use dosage according to your sliding scale Discharge Orders: Discharge ED (Routine); Ordered 01/25/24 Ordered By: oTmmy Lundberg Referrals: Dave Rodriguez DO [Primary Care Provider] - Discharge Diet: Usual diet Discharge Activity: Increase activity as tolerated Patient Instructions: Head Injury (ED), Hematoma (ED) Activity Restrictions/Additional Instructions: Ice packs to the hematoma. Elevate head is much as possible. Use acetaminophen to help with pain. Drink plenty of water. Light activity for the next 2 to 3 days. Increase activity as tolerated. Follow-up with primary care or Workmen's Comp. specialist for further evaluation and 3 to 5 days as needed. Stand Alone Forms: Work/School Release Coding Level of Care Code ED [employer] for Hollis Gunderson
[2024-01-25 15:55] VITALS: BP 128/84; PULSE 84; RESP 16; O2SAT 96
== END 2024-01-25 16:14 | disposition home or self-care (01) ==
PROVIDERS: Emergency Provider Nurse Practitioner Family; PCP Electrodiagnostic Medicine
DX: S00.83XA Contusion of other part of head, initial encounter (principal); Z79.4 Long term (current) use of insulin; E78.5 Hyperlipidemia, unspecified; I10 Essential (primary) hypertension; W18.09XA Striking against other object with subsequent fall, initial encounter; Y92.129 Unspecified place in nursing home as the place of occurrence of the external cause; Y99.0 Civilian activity done for income or pay
CPT/HCPCS: 70450; 70486; 73562; 99284

== ENCOUNTER 2024-02-01 13:38 | Emergency (ER) | payer OTHER, SELFPAY ==
--- NOTE | 2024-02-01 13:40 | CTR_ITS ---
PROCEDURE INFORMATION: Exam: CT Head Without Contrast Exam date and time: 02/01/2024 3:01 PM Age: 58 years old Clinical indication: Injury or trauma; Work related; Blunt trauma (contusions or hematomas); Patient HX: Fall 1 week ago, pain right eye area. Patient also describes not feeling like herself. TECHNIQUE: Imaging protocol: Computed tomography of the head without contrast. Radiation optimization: All CT scans at this facility use at least one of these dose optimization techniques: automated exposure control; mA and/or kV adjustment per patient size (includes targeted exams where dose is matched to clinical indication); or iterative reconstruction. COMPARISON: CT head wo con* [id number] 01/25/2024 2:31 PM RADIATION DOSE METRICS: Total DLP (mGy-cm): 995 FINDINGS: Brain: No evidence of intra-axial or extra-axial hemorrhage. No mass effect or midline shift. Lopez-white differentiation is maintained. Basilar cisterns are patent. Empty sella. Cerebral ventricles: No hydrocephalus. Mastoid air cells: The visualized mastoids and middle ears are clear. Bones: Unremarkable. No acute fracture. Soft tissues: No gross soft tissue abnormality. CT/CT head wo con* [id number] IMPRESSION: 1. No acute intracranial abnormality.
--- NOTE | 2024-02-01 13:40 | CTR_ITS ---
PROCEDURE INFORMATION: Exam: CT Cervical Spine Without Contrast Exam date and time: 02/01/2024 3:03 PM Age: 58 years old Clinical indication: Injury or trauma; Work related; Blunt trauma; Patient HX: Fall 1 week ago, pain right eye area. Patient also describes not feeling like herself. TECHNIQUE: Imaging protocol: Computed tomography of the cervical spine without contrast. Radiation optimization: All CT scans at this facility use at least one of these dose optimization techniques: automated exposure control; mA and/or kV adjustment per patient size (includes targeted exams where dose is matched to clinical indication); or iterative reconstruction. COMPARISON: CT neck w con* [id number] 11/16/2018 10:33 AM RADIATION DOSE METRICS: Total DLP (mGy-cm): 236.97 FINDINGS: Bones/joints: No evidence of acute fracture or subluxation of the cervical spine. The craniocervical junction including the atlantoaxial and atlantooccipital articulations are intact. C2-C3: Mild uncovertebral hypertrophy and facet arthrosis without central or foraminal stenosis. C3-C4: Uncovertebral hypertrophy and left-sided facet arthrosis results in mild left-sided foraminal stenosis. No central stenosis. C4-C5: Uncovertebral hypertrophy and mild facet arthrosis results in moderate right-sided and mild left-sided foraminal stenosis. No central stenosis. C5-C6: Uncovertebral hypertrophy results in moderate bilateral foraminal stenosis. Posterior disc osteophyte complex results in moderate central stenosis. C6-C7: Uncovertebral hypertrophy results in moderate bilateral foraminal stenosis. Posterior disc osteophyte complex results in moderate central stenosis. C7-T1: Uncovertebral hypertrophy results in mild bilateral foraminal stenosis, right worse than left. No central stenosis. Lungs: The visualized lung apices are clear. Soft tissues: No gross soft tissue abnormality. No significant prevertebral edema. No evidence of fluid collection or hematoma. CT/CT cervical spin wo con* [id number] IMPRESSION: 1. No evidence of fracture or subluxation of the cervical spine.
--- NOTE | 2024-02-01 13:40 | CTR_ITS ---
PROCEDURE INFORMATION: Exam: CT Maxillofacial Without Contrast Exam date and time: 02/01/2024 3:06 PM Age: 58 years old Clinical indication: Injury or trauma; Work related; Blunt trauma (contusions or hematomas); Forehead; Patient HX: Fall 1 week ago, pain right eye area. Patient also describes not feeling like herself. TECHNIQUE: Imaging protocol: Computed tomography of the face without contrast. Radiation optimization: All CT scans at this facility use at least one of these dose optimization techniques: automated exposure control; mA and/or kV adjustment per patient size (includes targeted exams where dose is matched to clinical indication); or iterative reconstruction. COMPARISON: CT facial bones wo con* [id number] 01/25/2024 2:31 PM RADIATION DOSE METRICS: Total DLP (mGy-cm): 612.15 FINDINGS: Orbital cavities: Bony orbits are intact. The globes, intraconal/extraconal fat, extraocular muscles and optic nerves are grossly unremarkable. Bones: No acute fracture. Paranasal sinuses: Prior medial maxillary antrostomies bilaterally. Postsurgical changes of the sphenoid and ethmoid air cells. There is opacification of the left frontal sinus. Paranasal sinuses are otherwise clear. Soft tissues: Right forehead scalp contusion with a [address]/CT facial bones wo con* [id number] IMPRESSION: 1. No evidence of facial fracture. 2. Right forehead scalp contusion with a 3 cm scalp hematoma.
[2024-02-01 14:23] VITALS: BP 125/80; PULSE 73; TEMP 36.4; O2SAT 98; BMI 40.4
[2024-02-01 16:55] VITALS: BP 129/84; PULSE 72; RESP 16; O2SAT 98
--- NOTE | 2024-02-01 16:58 | W.ED.FALL ---
HPI - Fall General: Chief Complaint: Fall Stated Complaint: fall a week ago, face pain, headaches Time Seen by Provider: 02/01/24 16:50 Source: patient Mode of arrival: ambulatory Limitations: no limitations History of Present Illness: 58-year-old female who states she fell a week ago. She did hit her head she been having some facial head neck pain since her fall she had bruising over the right forehead with tenderness to touch states her pain is currently a 4 out of 10 denies any loss of consciousness. Associated symptoms-after fall: Reports headache(s) and neck pain; Denies abdominal pain or chest pain Review of Systems Const: Denies: fever(s), chills, body aches or change in appetite ENMT: Denies: throat pain or dental pain Card: Denies: chest pain Resp: Denies: dyspnea GI: Denies: abdominal pain, nausea, vomiting or diarrhea Musc: Reports: neck pain; Denies: back pain Skin/Breast: Denies: rash Neuro: Reports: headache(s) PFSH ED PFSH: Medical History Abnormal EKG SOB (shortness of breath) Reactive airway disease Atrial arrhythmia Dyslipidemia Benign essential HTN Asthma Hypertension Surgical History S/P eye surgery 1989- Performed in [facility], bilateral S/P cataract extraction 2013- Performed in [place] S/P sinus surgery 2011-Performed in [facility] 2014-Performed in [facility] S/P knee replacement left knee 04/2018 right knee 07/2018 S/P endometrial ablation 2016 Family History Father CAD (coronary artery disease) CHF Mother CAD (coronary artery disease) CHF 78 Social History Smoking and tobacco/nicotine status: never used tobacco/nicotine Alcohol intake: never Substance/Drug Use: never Physical Exam Const: COMMON NORMALS: no acute distress, patient oriented x3 and healthy appearing HENMT: OTHER: Contusion with swelling to right forehead does have black eyes bilaterally Eye: COMMON NORMALS: Equal, round and reactive pupils present and EOMs intact bilaterally PUPIL: Yes Equal, round and reactive pupils present Neck/C-Spine: COMMON NORMALS: full ROM and supple Chest: COMMONS NORMALS: normal inspection of the chest Resp: COMMON NORMALS: normal respiratory effort Cardio: COMMON NORMALS: regular rate RATE: regular rate Extremity: COMMON NORMALS: normal to inspection and full ROM Neuro: COMMON NORMALS: patient oriented x3, moves all extremities and no focal motor deficits Psych: COMMON NORMALS: mental status grossly normal, Normal thought process present and cooperative THOUGHT PROCESS: Normal thought process present Skin: COMMON NORMALS: no rashes or lesions noted and no wounds GENERAL SKIN EXAM: no rashes or lesions noted Course Vital Signs: Vital signs: Vital Signs Temperature 97.6 F 02/01/24 14:23 Pulse Rate 72 02/01/24 16:55 Respiratory Rate 16 02/01/24 16:55 Blood Pressure 129/84 02/01/24 16:55 Pulse Oximetry 98 02/01/24 16:55 Oxygen Delivery Me thod Room Air 02/01/24 14:23 MDM - Fall Medical Decision Making Patient presents with a closed head injury from a fall imaging here is all normal she is to ice over her forehead and eyes follow-up PCP return if worsening. Medical Records I reviewed the patient's medical records. Lab Data Radiology Impressions Cervical Spine CT 02/01/24 13:40 IMPRESSION: 1. No evidence of fracture or subluxation of the cervical spine. Face CT 02/01/24 13:40 IMPRESSION: 1. No evidence of facial fracture. 2. Right forehead scalp contusion with a 3 cm scalp hematoma. Head CT 02/01/24 13:40 IMPRESSION: 1. No acute intracranial abnormality. All radiology interpretation(s) finalized by discharge Discharge Plan Discharge Patient Disposition: Home Clinical Impression: Closed head injury, Fall Condition: Stable Prescriptions: No Action albuterol sulfate 2.5 mg /3 mL (0.083 %) solution for nebulization 2.5 mg INHALATION Q6H PRN (Reason: Shortness Of Breath Or Wheezing) albuterol sulfate [Ventolin HFA] 90 mcg/actuation HFA aerosol inhaler 2 puff INHALATION QID PRN (Reason: Shortness Of Breath) Zyrtec 10 mg capsule 10 mg PO DAILY montelukast [Singulair] 10 mg tablet 10 mg PO DAILY ferrous sulfate 325 mg (65 mg iron) tablet,delayed release (DR/EC) 325 mg PO DAILY omeprazole 20 mg tablet,delayed release (DR/EC) 20 mg PO DAILY magnesium See Rx Instructions .ROUTE .COMPLEX Rx Instructions: . levothyroxine 100 mcg capsule 100 mcg PO DAILY Lactobacillus acidophilus See Rx Instructions .ROUTE .COMPLEX Rx Instructions: . 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
== END 2024-02-01 17:10 | disposition home or self-care (01) ==
PROVIDERS: Emergency Provider Emergency Medicine; PCP Electrodiagnostic Medicine
DX: S00.03XA Contusion of scalp, initial encounter (principal); E78.5 Hyperlipidemia, unspecified; I10 Essential (primary) hypertension; W19.XXXA Unspecified fall, initial encounter
CPT/HCPCS: 70450; 70486; 72125; 99284